=== PATIENT | female | born 1960 | race Caucasian/White ===

== ENCOUNTER 2017-01-27 19:27 | Emergency (ER) | payer MEDICAID ==
[~2017-01-27] VITALS: Ht 154.9 cm; Wt 79.0 kg
[~2017-01-27 19:27] MED LIST: ASPI-676 PO; ATEN50TA PO; FLUO40CA10 PO; GLIP5TAB13 PO; HYDR25TA6 PO; METF500T4 PO
[2017-01-27 19:36] VITALS: Ht 154.9 cm; Wt 79.0 kg
[2017-01-27 20:16] LABS: URINE BLOOD (Dip) POC Negative (NEGATIVE)
[2017-01-27] MEDS ORDERED: ONDANSETRON 4 MG INJ IV STA (20:17)
[2017-01-27] MEDS ORDERED: morphine 4 MG/ML VIAL IV STA (20:17)
[2017-01-27] MEDS ORDERED: KETOROLAC 30 MG INJ IV STA (20:17)
[2017-01-27] MEDS ORDERED: SOD CHLORIDE 0.9% 1,000 ML IV STA (20:17)
[2017-01-27 20:33] VITALS: TEMP 98.2
[2017-01-27 20:56] LABS: ADD SCAN DIFF NO
[2017-01-27 21:07] LABS: BASOPHILS % 0.1 % (0.0-2.0); EOSINOPHILS % 0.4 % (0.0-7.0); HEMATOCRIT 38.4 % (37.0-47.0); HEMOGLOBIN 13.9 g/dl (12.0-16.0); LYMPHOCYTES # 1.7 10^3/ul (0.8-2.9); LYMPHOCYTES % 18.1 % (15.0-51.0); MEAN CORPUSCULAR HEMOGLOBIN 32.9 pg (29.0-33.0); MEAN CORPUSCULAR HGB CONC 36.2 g/dl (32.0-37.0); MEAN CORPUSCULAR VOLUME 90.8 fl (82.0-101.0); MEAN PLATELET VOLUME 9.9 fl (7.4-10.4); MONOCYTE # 0.7 10^3/ul (0.3-0.9); MONOCYTES % 7.3 % (0.0-11.0); NEUTROPHIL # 6.9 10^3/ul (1.6-7.5); NEUTROPHILS % 73.9 % (39.0-77.0); PLATELET COUNT 156 10^3/UL (140-415); RED BLOOD COUNT 4.23 10^6/ul (4.20-5.40); RED CELL DISTRIBUTION WIDTH 12.1 % (11.5-14.5); WHITE BLOOD COUNT 9.3 10^3/ul (4.8-10.8)
[2017-01-27 21:13] LABS: ADD UMIC YES; UR ASCORBIC ACID 40 mg/dL (NEGATIVE); UR BACTERIA FEW /HPF (NONE SEEN); UR BILIRUBIN (Dip) NEGATIVE (NEGATIVE); UR BLOOD (Dip) NEGATIVE (NEGATIVE); UR CLARITY SLIGHTLY CLOUDY (CLEAR); UR COLOR AMBER (YELLOW); UR GLUCOSE (Dip) NEGATIVE (NEGATIVE); UR KETONES (Dip) TRACE mg/dL (NEGATIVE); UR LEUKOCYTE ESTERASE (Dip) NEGATIVE Leu/ul (NEGATIVE); UR MUCUS MODERATE /HPF (NONE SEEN); UR NITRITE (Dip) NEGATIVE (NEGATIVE); UR RBC 0 /HPF (0-5); UR SPECIFIC GRAVITY (Dip) 1.024 (1.003-1.030); UR SQUAMOUS EPITHELIAL CELL FEW /HPF (FEW); UR TOTAL PROTEIN (Dip) 1+ mg/dl (NEGATIVE); UR UROBILINOGEN (Dip) 1+ mg/dL (NEGATIVE)
[2017-01-27] MEDS ORDERED: HYDROmorphONE 1 MG/ML SYG IV STA (21:14)
--- NOTE | 2017-01-27 21:42 | RADRPT ---
PROCEDURE: CT Abdomen and Pelvis without contrast. CLINICAL INDICATION: Abdominal pain TECHNIQUE: CT scan of the abdomen and pelvis without contrast was performed on a multidetector hig h-resolution CT scanner. The patient was scanned without intravenous contrast. Coronal and sagittal reformatted images were obtained from the axial source images. Images were reviewed on a high-resol [employer] PACS workstation. The total exam CTDI equals 15.49 mGy and the total exam DLP equals 852.60 mG y-cm. One or more of the following dose reduction techniques were used: Automated exposure control. Adjustment of the mA and/or kV according to patient size. Use of iterative reconstruction technique. COMPARISON: None FINDINGS: CT abdomen: The lung bases are clear. The heart size is normal, without pericardial thickening or effusion. Th ere is hepatomegaly with fatty infiltration. The spleen is normal in size and homogeneous in densit y. The stomach is partially collapsed, but is grossly unremarkable. The pancreas as visualized is normal. The gallbladder is unremarkable. There is no evidence for biliary dilatation. The adrenal glands are symmetric and normal. The kidneys are symmetrically unremarkable as well. No renal calc ulus or obstructive uropathy or mass lesion is seen. The aorta is of normal caliber. Aortic vascular calcifications are present. There is no retroperit gee lymphadenopathy. The carlos hepatis region is clear. The bowel and mesentery, as visualized, are equally unremarkable. CT pelvis: The small bowel loops situated within the pelvis are unremarkable. There is a normal appendix. The p elvic organs are normal. The pelvic sidewalls and inguinal regions are clear. The sigmoid colon an d rectum are unremarkable. No mass, lymphadenopathy, or free fluid is seen. No acute inflammation is seen. No osteolytic or osteoblastic lesion is detected. IMPRESSION: 1. No mass, lymphadenopathy, or focal acute inflammatory process is identified. 2. Hepatomegaly with fatty infiltration. 3. Normal appendix. 4. Scattered aortic vascular calcifications. RPTAT: HHO .Christine Mcdonald MD, Date Time Electronically viewed and signed by .Christine Mcdonald MD, on 01/27/2017 21:42 .O/
[2017-01-27 22:19] LABS: ALBUMIN/GLOBULIN RATIO 1.33; BILIRUBIN,INDIRECT 0.7 mg/dl (0-1.1); BILIRUBIN,TOTAL 0.7 mg/dl (0.2-1.3); CALCIUM 8.7 mg/dl (8.4-10.2); CREATININE 0.53 mg/dl (0.44-1.00); POTASSIUM 3.4 mmol/L (3.5-5.1)
[2017-01-27] MEDS ORDERED: HYDR-902 PO (22:46)
[2017-01-27] MEDS ORDERED: ONDA4TAB14 PO (22:46)
[2017-01-27 22:51] VITALS: BP 131/82; PULSE 82; RESP 16
--- NOTE | 2017-01-27 22:56 | ERD ---
ER Documentation Chief Complaint Date/Time DATE: 01/27/17 TIME: 22:53 Chief Complaint rt flank pain today, +vomiting HPI Patient is a 56-year-old female with diabetes and hypertension who presents with right-sided flank pain. Patient has had pain for the past 3 days. The pain was worse today. It is constant. She said that she had mild pain with urination. She denies fevers. She tried Tylenol with no help. Upon review of old medical records the patient had one previous visit to the ER in 2011. ROS All systems reviewed and are negative except as per history of present illness. Medications Home Meds Active Scripts Ondansetron (Ondansetron Odt) 4 Mg Tab.rapdis, 4 MG PO Q6H Y for NAUSEA AND/OR VOMITING, #30 TAB Prov:MUNIR HUFFMAN MD 01/27/17 Hydrocodone/Acetaminophen ([place] 10-325 Tablet) 1 Each Tablet, 1 TAB PO Q6H Y for PAIN, #7 TAB Prov:MUNIR HUFFMAN MD 01/27/17 Reported Medications Atenolol* (Atenolol*) 50 Mg Tablet, 50 MG PO DAILY 01/09/12 Fluoxetine Hcl* (Prozac*) 40 Mg Capsule, 40 MG PO DAILY 01/09/12 Metformin* (Glucophage*) 500 Mg Tab, 500 MG PO BID 01/09/12 Hydrochlorothiazide (Hydrochlorothiazide) 25 Mg Tablet, 25 MG PO DAILY 01/09/12 Glipizide* (Glipizide*) 5 Mg Tablet, 5 MG PO BID 01/09/12 Aspirin (Elvin Child) 81 Mg Chew, 81 MG PO DAILY 01/09/12 Allergies Allergies: Coded Allergies: No Known Allergy (Unverified , 01/27/17) PMhx/Soc History of Surgery: No Anesthesia Reaction: No Hx Neurological Disorder: No Hx Respiratory Disorders: No Hx Cardiac Disorders: No Hx Psychiatric Problems: No Hx Miscellaneous Medical Probl: Yes (DM) Hx Alcohol Use: No Hx Substance Use: No Hx Tobacco Use: No Smoking Status: Never smoker FmHx Family History: diabetes Physical Exam Vitals Vital Signs Date Time Temp Pulse Resp B/P Pulse Ox O2 Delivery O2 Flow Rate FiO2 01/27/17 22:51 82 16 131/82 100 Room Air 01/27/17 21:51 86 18 136/86 100 Room Air 01/27/17 20:33 98.2 83 20 143/82 98 Room Air 01/27/17 19:36 98.0 106 18 174/113 98 Physical Exam Const: Moderate distress secondary to pain Head: Atraumatic Eyes: Normal Conjunctiva ENT: Normal External Ears, Nose and Mouth. Neck: Full range of motion..~ No meningismus. Resp: Clear to auscultation bilaterally Cardio: Regular rate and rhythm, no murmurs Abd: Right-sided flank pain without right lower quadrant pain Skin: No petechiae or rashes Back: No midline or flank tenderness Ext: No cyanosis, or edema Neur: Awake and alert Psych: Normal Mood and Affect Result Diagram: 01/27/17202401/27/172131 Results 24 hrs Laboratory Tests Test 01/27/17 20:19 01/27/17 20:25 01/27/17 21:32 Bedside Urine pH (LAB) 7.0 Bedside Urine Protein (LAB) 2+ Bedside Urine Glucose (UA) Negative Bedside Urine Ketones (LAB) 1+ Bedside Urine Blood Negative Bedside Urine Nitrite (LAB) Negative Bedside Urine Leukocyte Esterase (L Negative White Blood Count 9.310^3/ul Red Blood Count 4.2310^6/ul Hemoglobin 13.9g/dl Hematocrit 38.4% Mean Corpuscular Volume 90.8fl Mean Corpuscular Hemoglobin 32.9pg Mean Corpuscular Hemoglobin Concent 36.2g/dl Red Cell Distribution Width 12.1% Platelet Count 95828^3/UL Mean Platelet Volume 9.9fl Neutrophils % 73.9% Lymphocytes % 18.1% Monocytes % 7.3% Eosinophils % 0.4% Basophils % 0.1% Nucleated Red Blood Cells % 0.0/100WBC Neutrophils # 6.910^3/ul Lymphocytes # 1.710^3/ul Monocytes # 0.710^3/ul Eosinophils # 0.010^3/ul Basophils # 0.010^3/ul Nucleated Red Blood Cells # 0.010^3/ul Urine Color MESFIN Urine Clarity SLIGHTLY CLOUDY Urine pH 7.0 Urine Specific [place] 1.024 Urine Ketones TRACEmg/dL Urine Nitrite NEGATIVEmg/dL Urine Bilirubin NEGATIVEmg/dL Urine Urobilinogen 1+mg/dL Urine Leukocyte Esterase NEGATIVELeu/ul Urine Microscopic RBC 0/HPF Urine Microscopic WBC 2/HPF Urine Squamous Epithelial Cells FEW/HPF Urine Bacteria FEW/HPF Urine Mucus MODERATE/HPF Urine Hemoglobin NEGATIVEmg/dL Urine Glucose NEGATIVEmg/dL Urine Total Protein 1+mg/dl Sodium Level 127mmol/L Potassium Level 3.4mmol/L Chloride Level 83mmol/L Carbon Dioxide Level 30mmol/L Anion Gap 17 Blood Urea Nitrogen 5mg/dl Creatinine 0.53mg/dl Glucose Level 95mg/dl Calcium Level 8.7mg/dl Total Bilirubin 0.7mg/dl Direct Bilirubin 0.00mg/dl Indirect Bilirubin 0.7mg/dl Aspartate Amino Transf (AST/SGOT) 72IU/L Alanine Aminotransferase (ALT/SGPT) 58IU/L Alkaline Phosphatase 74IU/L Total Protein 7.0g/dl Albumin 4.0g/dl Globulin 3.00g/dl Albumin/Globulin Ratio 1.33 Lipase 161U/L Current Medications Medications (Trade) Dose Ordered Sig/Bonnie Route PRN Reason Start Time Stop Time Status Last Admin Dose Admin Sodium Chloride (NS) 1,000 ml @ 1,000 mls/hr Q1H STAT IV 01/27/17 20:17 01/27/17 21:16 DC 01/27/17 20:29 Morphine Sulfate (morphine) 4 mg ONCE STAT IV 01/27/17 20:17 01/27/17 20:18 DC 01/27/17 20:29 Ondansetron HCl (Zofran Inj) 4 mg ONCE STAT IV 01/27/17 20:17 01/27/17 20:18 DC 01/27/17 20:30 Ketorolac Tromethamine (Toradol) 30 mg ONCE STAT IV 01/27/17 20:17 01/27/17 20:18 DC 01/27/17 20:30 Hydromorphone HCl (Dilaudid) 1 mg ONCE STAT IV 01/27/17 21:14 01/27/17 21:16 DC 01/27/17 21:20 Procedures/MDM CT scan shows no acute process per radiology. Patient is a 56-year-old female with hypertension diabetes who presents with right-sided flank pain. Urinalysis shows no signs of obvious infection. CT scan shows no obvious signs of kidney stone, bowel obstruction, or appendicitis. At this point I doubt pyelonephritis, appendicitis, bowel obstruction, or other serious etiology. I believe outpatient management is appropriate. The patient feels better after pain medication and fluids. She will be discharged home and can follow-up with a primary doctor within 24 hours for reevaluation. She can return sooner for any worsening symptoms per Departure Diagnosis: Primary Impression: Flank pain Condition: Fair Patient Instructions: Flank Pain, Uncertain Cause Referrals: [facility] YOU HAVE RECEIVED A MEDICAL SCREENING EXAM AND THE RESULTS INDICATE THAT YOU DO NOT HAVE A CONDITION THAT REQUIRES URGENT TREATMENT IN THE EMERGENCY DEPARTMENT. FURTHER EVALUATION AND TREATMENT OF YOUR CONDITION CAN WAIT UNTIL YOU ARE SEEN IN YOUR DOCTORS OFFICE WITHIN THE NEXT 1-2 DAYS. IT IS YOUR RESPONSIBILITY TO MAKE AN APPOINTMENT FOR [facility]. IF YOU HAVE A PRIMARY DOCTOR --you should call your primary doctor and schedule an appointment IF YOU DO NOT HAVE A PRIMARY DOCTOR YOU CAN CALL OUR PHYSICIAN REFERRAL HOTLINE AT IF YOU CAN NOT AFFORD TO SEE A PHYSICIAN YOU CAN CHOSE FROM THE FOLLOWING [facility] [address] [facility] [facility] [address] [facility] [facility] [address] [facility] [address] [facility] [facility] [address] [facility]. [facility]. [address] Additional Instructions: FOLLOW UP WITH YOUR PRIMARY CARE PHYSICIAN TOMORROW.Return to this facility if you are not improving as expected. MUNIR HUFFMAN MD Jan 27, 2017 22:56
== END 2017-01-27 22:56 | disposition home or self-care (01) ==
LOC: E/R 19:27
DX: R10.9 Unspecified abdominal pain (principal); I10 Essential (primary) hypertension; E11.9 Type 2 diabetes mellitus without complications; Z79.82 Long term (current) use of aspirin; Z79.84 Long term (current) use of oral hypoglycemic drugs
CPT/HCPCS: 36415; 74176; 80053; 81001; 83690; 85025; 96374; 96375; J1170; J1885; J2270; J2405; J7030; Z7502; 81003

== ENCOUNTER 2017-01-30 12:12 | Emergency (ER) | payer MEDICAID ==
[~2017-01-30] VITALS: Ht 154.9 cm; Wt 77.5 kg
[~2017-01-30 12:12] MED LIST changes: -FLUO40CA10 PO; +HYDR-902 PO; +ONDA4TAB14 PO
[2017-01-30 12:14] VITALS: Ht 154.9 cm; Wt 77.5 kg
[2017-01-30] MEDS ORDERED: ONDANSETRON (ODT) 4 MG TAB ODT STA (14:14)
--- NOTE | 2017-01-30 14:20 | ERD ---
ER Documentation Chief Complaint Date/Time DATE: 01/30/17 TIME: 14:18 Chief Complaint Pt with GIFFORD andf blurry vision since yesterday HPI Patient is a 56-year-old female with past medical history of hypertension and diabetes here with her friend who presents to the ED with headache since yesterday afternoon. She states the pain came on suddenly and has been gradually getting worse. She describes it as a pulsating sensation on her left temporal side. She also complains of nausea with no vomiting. Denies fevers. Denies neck pain or neck stiffness. She states that this is unlike any headache she has experienced in the past. She states that she took [place] on the seventh for her flank pain and states that she stopped taking the medication on the 01/28/17. She states that she was concerned about the side effects of [place]. She also states that she has been taking Tylenol for the pain which has helped very minimally. She denies diarrhea or vomiting. Denies chest pain or cough or shortness of breath. Denies sick contacts. No other complaints. ROS All systems reviewed and are negative except as per history of present illness. Medications Home Meds Active Scripts Acetamin/Butalbital/Caffeine* (Fioricet*) [id number] Tab, 1 TAB PO Q6H Y for PAIN, #30 TAB Prov:JOSE RAUL INMAN PA-C 01/30/17 Ondansetron (Ondansetron Odt) 4 Mg Tab.rapdis, 4 MG PO Q6H Y for NAUSEA AND/OR VOMITING, #30 TAB Prov:MUNIR HUFFMAN MD 01/27/17 Hydrocodone/Acetaminophen ([place] 10-325 Tablet) 1 Each Tablet, 1 TAB PO Q6H Y for PAIN, #7 TAB Prov:MUNIR HUFFMAN MD 01/27/17 Reported Medications Atenolol* (Atenolol*) 50 Mg Tablet, 50 MG PO DAILY 01/09/12 Metformin* (Glucophage*) 500 Mg Tab, 500 MG PO BID 01/09/12 Hydrochlorothiazide (Hydrochlorothiazide) 25 Mg Tablet, 25 MG PO DAILY 01/09/12 Glipizide* (Glipizide*) 5 Mg Tablet, 5 MG PO BID 01/09/12 Aspirin (Elvin Child) 81 Mg Chew, 81 MG PO DAILY 01/09/12 Discontinued Reported Medications Fluoxetine Hcl* (Prozac*) 40 Mg Capsule, 40 MG PO DAILY 01/09/12 Allergies Allergies: Coded Allergies: No Known Allergy (Unverified , 01/30/17) PMhx/Soc History of Surgery: No Anesthesia Reaction: No Hx Neurological Disorder: No Hx Respiratory Disorders: No Hx Cardiac Disorders: Yes (Hypertension) Hx Psychiatric Problems: No Hx Miscellaneous Medical Probl: Yes (DM) Hx Alcohol Use: No Hx Substance Use: No Hx Tobacco Use: No Smoking Status: Never smoker FmHx Family History: No coronary disease, No diabetes, No other Physical Exam Vitals Vital Signs Date Time Temp Pulse Resp B/P Pulse Ox O2 Delivery O2 Flow Rate FiO2 01/30/17 12:14 98.6 92 20 183/86 96 Physical Exam GENERAL: Well-developed, well-nourished female. Appears in no acute distress. HEAD: Normocephalic, atraumatic. no pulsatile mass. EYES: Pupils are equally reactive bilaterally. EOMs grossly intact. No conjunctival erythema. ENT: Moist mucous membranes. No uvula deviation. No kissing tonsils. No exudates. NECK: Supple. No lymphadenopathy or thyromegaly. No meningismus. negative kernig. negative brudinski. LUNG: Clear to auscultation bilaterally. No rhonchi, wheezing, rales or coarse breath sounds. HEART: Regular rate and rhythm. No murmurs, rubs or gallops. ABDOMEN: No scars, ecchymosis or rashes noted. Soft, nontender, and nondistended. Positive bowel sounds in all four quadrants. No rebound tenderness , no guarding. (-) McBurneys point tenderness. No CVA tenderness. BACK: No midline tenderness. Extremities: Equal pulses bilaterally. No peripheral clubbing, cyanosis or edema. No unilateral leg swelling. NEUROLOGIC: Alert and oriented. Moving all four extremities. 5/5 strength in all extremities. Normal speech. Steady gait. Cranial nerves II through XII intact. No ataxia. Negative Romberg test. SKIN: Normal color. Warm and dry. No rashes or lesions. Capillary refill < 2 seconds Results 24 hrs Current Medications Medications (Trade) Dose Ordered Sig/Bonnie Route PRN Reason Start Time Stop Time Status Last Admin Dose Admin Ondansetron HCl (Zofran Odt) 4 mg ONCE STAT ODT 7/10/17 14:14 01/30/17 14:16 DC 01/30/17 14:38 Acetaminophen (Tylenol Tab) 650 mg ONCE ONCE PO 01/30/17 14:30 01/30/17 14:31 DC 01/30/17 14:40 Procedures/MDM ER COURSE: I kept the patient and/or family informed of laboratory and diagnostic imaging results throughout the emergency room course. EKG, MONITORS, & DIAGNOSTIC IMAGING: [place] [id number] Radiology Main Line: [phone] DIAGNOSTIC IMAGING REPORT Patient: KARLOS HOUSTON : 1960 Age: 56 Sex: F MR #: [id number] DOS: 01/30/17 1414 Ordering MD: JOSE RAUL INMAN PA-C Location: [facility] Room/Bed: PROCEDURE: CT Brain without contrast. CLINICAL INDICATION: headache x 2 days TECHNIQUE: CT scan of the brain was performed on a multidetector high- resolution CT scan. Axial imaging was obtained of the brain without contrast administration. Coronal and sagittal reformatted images were obtained from the axial source images. Standard CT scan of the head without contrast protocols were performed. The total exam CTDI equals 44.63 mGy and the total exam DLP equals 720.23 mGy- cm. One or more of the following dose reduction techniques were used: - Automated exposure control. - Adjustment of the mA and/or kV according to patient size. Use of iterative reconstruction technique. COMPARISON: None. FINDINGS: The ventricular system is normal in size without midline shift. There is mild prominence of the frontal extra-axial CSF spaces consistent with symmetrical frontal cerebral volume loss. Negative for intracranial masses or hemorrhages. Punctate 2 mm calcification involving the posterior left frontal lobe consistent with previous inflammatory disease such as cysticercosis. Seals- white matter junction is unremarkable. There is hard atherosclerotic plaque involving the cavernous carotid arteries. The bones and calvarium are intact. Paranasal sinuses visualized are unremarkable. The mastoids are unremarkable. IMPRESSION: 1. Punctate 2 mm calcification the posterior left frontal lobe consistent with previous inflammatory disease such as cysticercosis. 2. Negative for intracranial masses hemorrhages or midline shift. 3. Symmetrical mild bilateral pleural cerebral volume loss. RPTAT:AAJJ Physician Nabila Date Time Electronically viewed and signed by Jo-Ann Tang Physician on 01/30/2017 15:14 BM/ CC: JOSE RAUL INMAN PA-C MEDICATIONS: She was given Tylenol. Tolerated well with no adverse reaction. Improvement in symptoms. MEDICAL DECISION MAKING: This is a 56-year-old female who presents with headache 2 days. Vital signs were reviewed. Patient is afebrile. Patient is not hypoxic. Patient is not toxic or ill-appearing. Risk versus benefits of the CT scan were discussed with patient. Low suspicion for intracranial hemorrhage, meningitis, intracranial mass, concussion, temporal arteritis, stroke, elevated intracranial pressure, seizure. Patient does not have a pulsatile mass. Explained to patient her imaging report. Advised patient to follow-up with her primary care and neurologist. Patient had improvement in symptoms here in the ED was ready to go home. DISCHARGE: At this time, patient is stable for discharge and outpatient management with no new complaints during the ER course. Patient was sent home with Fioricet and a copy of imaging report and names of clinics. Patient will be discharged home with instructions to recheck for new or worsening symptoms such as fever, nausea , weakness, LOC and to follow up with primary care in the next 1-2 days. Patient was advised to return to the ER for any new or worsening symptoms. Plan was discussed and patient and/or family understands and agrees. Home instructions were given. Departure Diagnosis: Primary Impression: Headache Headache type: unspecified Headache chronicity pattern: acute headache Intractability: not intractable Qualified Code: R51 - Acute nonintractable headache, unspecified headache type Condition: Stable JOSE RAUL INMAN PA-C Jan 30, 2017 14:20
[2017-01-30] MEDS ORDERED: ACETAMINOPHEN 325 MG TAB PO ONE (14:30)
--- NOTE | 2017-01-30 15:14 | RADRPT ---
PROCEDURE: CT Brain without contrast. CLINICAL INDICATION: headache x 2 days TECHNIQUE: CT scan of the brain was performed on a multidetector high-resolution CT scan. Axial im aging was obtained of the brain without contrast administration. Coronal and sagittal reformatted i mages were obtained from the axial source images. Standard CT scan of the head without contrast prot ocols were performed. The total exam CTDI equals 44.63 mGy and the total exam DLP equals 720.23 mGy-cm. One or more of the following dose reduction techniques were used: - Automated exposure control. - Adjustment of the mA and/or kV according to patient size. Use of iterative reconstruction technique. COMPARISON: None. FINDINGS: The ventricular system is normal in size without midline shift. There is mild prominence of the fro ntal extra-axial CSF spaces consistent with symmetrical frontal cerebral volume loss. Negative for intracranial masses or hemorrhages. Punctate 2 mm calcification involving the posterior left fronta l lobe consistent with previous inflammatory disease such as cysticercosis. Seals-white matter junct ion is unremarkable. There is hard atherosclerotic plaque involving the cavernous carotid arteries. The bones and calvarium are intact. Paranasal sinuses visualized are unremarkable. The mastoids a re unremarkable. IMPRESSION: 1. Punctate 2 mm calcification the posterior left frontal lobe consistent with previous inflammator y disease such as cysticercosis. 2. Negative for intracranial masses hemorrhages or midline shift. 3. Symmetrical mild bilateral pleural cerebral volume loss. RPTAT:AAJJ Physician Nabila Date Time Electronically viewed and signed by Physician Nabila on 01/30/2017 15:14 BM/
[2017-01-30] MEDS ORDERED: FIORICET PO (16:02)
== END 2017-01-30 16:17 | disposition home or self-care (01) ==
LOC: FTE 12:12
DX: R51 Headache (principal); E11.9 Type 2 diabetes mellitus without complications; I10 Essential (primary) hypertension; Z79.82 Long term (current) use of aspirin; Z79.84 Long term (current) use of oral hypoglycemic drugs
CPT/HCPCS: 70450; Z7502; Z7610

== ENCOUNTER 2017-03-10 02:22 | Emergency (ER) | payer MEDICAID ==
[~2017-03-10] VITALS: Ht 154.9 cm; Wt 75.9 kg
[~2017-03-10 02:22] MED LIST changes: +FIORICET PO
[2017-03-10 02:26] VITALS: Ht 154.9 cm; Wt 75.9 kg
--- NOTE | 2017-03-10 03:16 | RADRPT ---
PROCEDURE: Chest. CLINICAL INDICATION: Chest pain. TECHNIQUE: Single frontal view of the chest was obtained. COMPARISON: None. FINDINGS: The cardiac silhouette is within normal limits. The aortic arch is unremarkable. There is no focal consolidation, vascular congestion or pleural effusion. There is no pneumothorax. IMPRESSION: No evidence for active cardiopulmonary disease. .Sarbjit Aly MD, MD Date Time Electronically viewed and signed by .Sarbjit Aly MD, MD on 03/10/2017 03:15 .T/
[2017-03-10 03:18] LABS: BASOPHILS % 0.1 % (0.0-2.0); EOSINOPHILS # 0.1 10^3/ul (0.0-0.5); EOSINOPHILS % 1.2 % (0.0-7.0); HEMATOCRIT 37.6 % (37.0-47.0); HEMOGLOBIN 13.4 g/dl (12.0-16.0); LYMPHOCYTES # 2.7 10^3/ul (0.8-2.9); LYMPHOCYTES % 34.4 % (15.0-51.0); MEAN CORPUSCULAR HEMOGLOBIN 31.9 pg (29.0-33.0); MEAN CORPUSCULAR HGB CONC 35.6 g/dl (32.0-37.0); MEAN CORPUSCULAR VOLUME 89.5 fl (82.0-101.0); MEAN PLATELET VOLUME 10.2 fl (7.4-10.4); MONOCYTE # 0.6 10^3/ul (0.3-0.9); MONOCYTES % 7.4 % (0.0-11.0); NEUTROPHILS % 56.5 % (39.0-77.0); PLATELET COUNT 148 10^3/UL (140-415); RED CELL DISTRIBUTION WIDTH 12.4 % (11.5-14.5); WHITE BLOOD COUNT 7.8 10^3/ul (4.8-10.8)
[2017-03-10] MEDS ORDERED: CALC600T11 PO (03:32)
[2017-03-10] MEDS ORDERED: OMEG1CAP2 PO (03:32)
[2017-03-10] MEDS ORDERED: MULTI PO (03:32)
[2017-03-10 03:56] LABS: ANION GAP 19 (8-16); BLOOD UREA NITROGEN 4 mg/dl (7-20); CALCIUM 9.4 mg/dl (8.4-10.2); CARBON DIOXIDE 24 mmol/L (21-31); CHLORIDE 90 mmol/L (97-110); CREATININE 0.58 mg/dl (0.44-1.00); GLUCOSE 126 mg/dl (70-220); SODIUM 130 mmol/L (135-144)
[2017-03-10 03:57] LABS: INR 1.11; PROTIME 14.3 Sec (12.2-14.2); PT RATIO 1.1
[2017-03-10 03:58] LABS: PARTIAL THROMBOPLASTIN TIME 29.5 Sec (25.0-35.0)
[2017-03-10] MEDS ORDERED: POTASSIUM CHLORIDE (SR) 20 MEQ TAB PO STA (04:12)
[2017-03-10 04:15] LABS: TROPONIN-I < 0.012 ng/ml (0.00-0.12)
[2017-03-10 04:29] LABS: CREATINE KINASE 69 IU/L (23-200)
[2017-03-10] MEDS ORDERED: IBUPROFEN 600 MG TAB PO ONE (04:30)
[2017-03-10] MEDS ORDERED: ZOLP5TAB PO (04:35)
[2017-03-10] MEDS ORDERED: PROM5SYR2 PO (04:35)
[2017-03-10] MEDS ORDERED: AZIT250T94 PO (04:35)
[2017-03-10 04:39] LABS: CK-MB 0.61 ng/ml (0.0-2.4)
[2017-03-10 04:51] LABS: TROPONIN-I < 0.012 ng/ml (0.00-0.12)
[2017-03-10 05:14] VITALS: BP 128/89; PULSE 87; RESP 18; TEMP 98.7
--- NOTE | 2017-03-10 06:15 | ERA ---
ER Documentation Chief Complaint Date/Time DATE: 03/10/17 Chief Complaint YUE RA39,chest discomfort HPI Patient is a 56-year-old female, presenting with acute chest discomfort associated with cough, congestion, insomnia for the last 5 days. The cough is nonproductive. She does have any fever, chills, chest pain with exertion or vomiting or diaphoresis. He denies abdominal pain, vomiting, dysuria, diarrhea. She does not smoke or drink Past medical history: Hypertension, diabetes mellitus Past surgical history: None ROS All systems reviewed and are negative except as per history of present illness. Medications Home Meds Active Scripts Zolpidem Tartrate* (Ambien*) 5 Mg Tablet, 5 MG PO HS Y for INSOMNIA, #5 TAB Prov:ROMY OCAMPO MD 03/10/17 Promethazine HCl/Codeine (Prometh-Codein 6.25-10 mg/5 ml) 5 Ml Syrup, 5 ML PO Q6 , #120 Prov:ROMY OCAMPO MD 03/10/17 Azithromycin* (Zithromax*) 250 Mg Tablet, 250 MG PO .AdisPACK DIRECTED, #6 TAB TAKE 500 MG (2 TABS) THE FIRST DAY THEN 250 MG (1 TAB) DAYS 2-5 Prov:ROMY OCAMPO MD 03/10/17 Acetamin/Butalbital/Caffeine* (Fioricet*) [id number] Tab, 1 TAB PO Q6H Y for PAIN, #30 TAB Prov:JOSE RAUL INMAN PA-C 01/30/17 Reported Medications Calcium Carbonate* (Calcium Carbonate*) 600 MG Ca Tab, 600 MG PO, TAB 03/10/17 Multivitamins* (Theragran*) 1 Tab Tab, 1 TAB PO DAILY, TAB 03/10/17 [place]-3 Acid Ethyl Esters (Lovaza) 1 Gm Capsule, 2 GM PO BID, CAP 03/10/17 Atenolol* (Atenolol*) 50 Mg Tablet, 50 MG PO DAILY 01/09/12 Metformin* (Glucophage*) 500 Mg Tab, 500 MG PO BID 01/09/12 Hydrochlorothiazide (Hydrochlorothiazide) 25 Mg Tablet, 25 MG PO DAILY 01/09/12 Glipizide* (Glipizide*) 5 Mg Tablet, 5 MG PO BID 01/09/12 Aspirin (Elvin Child) 81 Mg Chew, 81 MG PO DAILY 01/09/12 Discontinued Scripts Ondansetron (Ondansetron Odt) 4 Mg Tab.rapdis, 4 MG PO Q6H Y for NAUSEA AND/OR VOMITING, #30 TAB Prov:MUNIR HUFFMAN MD 01/27/17 Hydrocodone/Acetaminophen ([place] 10-325 Tablet) 1 Each Tablet, 1 TAB PO Q6H Y for PAIN, #7 TAB Prov:MUNIR HUFFMAN MD 01/27/17 Allergies Allergies: Coded Allergies: No Known Allergy (Unverified , 03/10/17) PMhx/Soc History of Surgery: No Anesthesia Reaction: No Hx Neurological Disorder: No Hx Respiratory Disorders: No Hx Cardiac Disorders: Yes (Hypertension) Hx Psychiatric Problems: No Hx Miscellaneous Medical Probl: Yes (DM) Hx Alcohol Use: No Hx Substance Use: No Hx Tobacco Use: No Smoking Status: Never smoker Physical Exam Vitals Vital Signs Date Time Temp Pulse Resp B/P Pulse Ox O2 Delivery O2 Flow Rate FiO2 03/10/17 05:14 98.7 87 18 128/89 97 Room Air 03/10/17 03:24 90 18 133/93 97 Room Air 03/10/17 02:36 102 18 151/96 97 Room Air 03/10/17 02:26 99.2 123 18 150/82 97 Physical Exam Const: No acute distress. Head: Atraumatic. Eyes: Normal Conjunctiva. ENT: Normal External Ears, Nose and Mouth. Neck: Full range of motion. No meningismus. Resp: Clear to auscultation bilaterally. Cardio: Regular rate and rhythm. Abd: Soft, non distended, normal bowel sounds, non tender. Skin: No petechiae or rashes. Back: No midline or flank tenderness. Ext: No cyanosis, or edema. Neur: Awake and alert. No focal deficit Psych: Normal Mood and Affect. Result Diagram: 03/10/179 03/10/17 0249 Results 24 hrs Laboratory Tests Test 03/10/17 02:49 White Blood Count 7.810^3/ul Red Blood Count 4.2010^6/ul Hemoglobin 13.4g/dl Hematocrit 37.6% Mean Corpuscular Volume 89.5fl Mean Corpuscular Hemoglobin 31.9pg Mean Corpuscular Hemoglobin Concent 35.6g/dl Red Cell Distribution Width 12.4% Platelet Count 24435^3/UL Mean Platelet Volume 10.2fl Neutrophils % 56.5% Lymphocytes % 34.4% Monocytes % 7.4% Eosinophils % 1.2% Basophils % 0.1% Nucleated Red Blood Cells % 0.0/100WBC Neutrophils # (Manual) 410^3/ul Lymphocytes # 2.710^3/ul Monocytes # 0.610^3/ul Eosinophils # 0.110^3/ul Basophils # 0.010^3/ul Nucleated Red Blood Cells # 0.010^3/ul Prothrombin Time 14.3Sec Prothrombin Time Ratio 1.1 INR International Normalized Ratio 1.11 Activated Partial Thromboplast Time 29.5Sec Sodium Level 130mmol/L Potassium Level 3.0mmol/L Chloride Level 90mmol/L Carbon Dioxide Level 24mmol/L Anion Gap 19 Blood Urea Nitrogen 4mg/dl Creatinine 0.58mg/dl Glucose Level 126mg/dl Calcium Level 9.4mg/dl Creatine Kinase 69IU/L Creatine Kinase Index 0.9 Creatinine Kinase MB (Mass) 0.61ng/ml Troponin I < 0.012ng/ml Current Medications Medications (Trade) Dose Ordered Sig/Bonnie Route PRN Reason Start Time Stop Time Status Last Admin Dose Admin Ibuprofen (Motrin) 600 mg ONCE ONCE PO 03/10/17 04:30 03/10/17 04:31 DC 03/10/17 04:13 Potassium Chloride (Klor-Con 20) 60 meq ONCE STAT PO 03/10/17 04:12 03/10/17 04:14 DC 03/10/17 04:36 Procedures/[place] [address] Radiology Main Line: [phone] DIAGNOSTIC IMAGING REPORT Patient: KARLOS HOUSTON : 1960 Age: 56 Sex: F MR #: [id number] DOS: 03/10/17 0229 Ordering MD: ROMY OCAMPO MD Location: E/R Room/Bed: PROCEDURE: Chest. CLINICAL INDICATION: Chest pain. TECHNIQUE: Single frontal view of the chest was obtained. COMPARISON: None. FINDINGS: The cardiac silhouette is within normal limits. The aortic arch is unremarkable. There is no focal consolidation, vascular congestion or pleural effusion. There is no pneumothorax. IMPRESSION: No evidence for active cardiopulmonary disease. .Sarbjit Aly MD, Date Time Electronically viewed and signed by .Sarbjit Aly MD, on 03/10/2017 03:15 .T/ CC: ROMY OCAMPO MD EKG: Read by emergency physician Rate/Rhythm: Normal Sinus Rhythm 92 beats/min QRS, ST, T-waves: No ST elevation, no T inversion Impression: Normal EKG MEDICAL MAKING DECISION: The patient is a 56-year-old female, presenting with acute bronchitis, acute hypokalemia, acute insomnia. She was treated with Motrin 600 mg p.o. for her general body pain, potassium chloride 60 mg p.o. for her acute hypokalemia. I do not suspect ACS and the patient The differential diagnoses considered include but are not limited to acute coronary syndrome, acute myocardial infarction, pericarditis, pulmonary embolism , aortic dissection, pneumonia, pleural effusion, pneumothorax, GERD, chest wall pain. Departure Diagnosis: Primary Impression: Bronchitis Additional Impression: Hypokalemia Condition: Good Patient Instructions: Bronchitis, Antiobiotic Treatment (Adult) Referrals: COUNT INCLUDES THE [facility] YOU HAVE RECEIVED A MEDICAL SCREENING EXAM AND THE RESULTS INDICATE THAT YOU DO NOT HAVE A CONDITION THAT REQUIRES URGENT TREATMENT IN THE EMERGENCY DEPARTMENT. FURTHER EVALUATION AND TREATMENT OF YOUR CONDITION CAN WAIT UNTIL YOU ARE SEEN IN YOUR DOCTORS OFFICE WITHIN THE NEXT 1-2 DAYS. IT IS YOUR RESPONSIBILITY TO MAKE AN APPOINTMENT FOR FOLOW-UP CARE. IF YOU HAVE A PRIMARY DOCTOR --you should call your primary doctor and schedule an appointment IF YOU DO NOT HAVE A PRIMARY DOCTOR YOU CAN CALL OUR PHYSICIAN REFERRAL HOTLINE AT IF YOU CAN NOT AFFORD TO SEE A PHYSICIAN YOU CAN CHOSE FROM THE FOLLOWING COUNT INCLUDES THE [facility] [address] [facility]. [facility] [address] [facility] [address] [facility] [address] [facility]. [facility] [address] [facility]. [facility] [address] [facility]. [facility] YOU HAVE RECEIVED A MEDICAL SCREENING EXAM AND THE RESULTS INDICATE THAT YOU DO NOT HAVE A CONDITION THAT REQUIRES URGENT TREATMENT IN THE EMERGENCY DEPARTMENT. FURTHER EVALUATION AND TREATMENT OF YOUR CONDITION CAN WAIT UNTIL YOU ARE SEEN IN YOUR DOCTORS OFFICE WITHIN THE NEXT 1-2 DAYS. IT IS YOUR RESPONSIBILITY TO MAKE AN APPOINTMENT FOR FOLOW-UP CARE. IF YOU HAVE A PRIMARY DOCTOR --you should call your primary doctor and schedule and appointment IF YOU DO NOT HAVE A PRIMARY DOCTOR YOU CAN CALL OUR PHYSICIAN REFERRAL HOTLINE AT . IF YOU CAN NOT AFFORD TO SEE A PHYSICIAN YOU CAN CHOSE FROM THE FOLLOWING [facility] INSTITUTIONS: [facility] [address] [place] [address] [facility] [address] [place] [address] [facility] [address] [place] [address] Additional Instructions: Call your primary care doctor TOMORROW for an appointment during the next 2-3 days.See the doctor sooner or return here if your condition worsens before your appointment time. He was discharged with Zithromax, Phenergan with codeine, ROMY Carr MD Mar 10, 2017 06:15
== END 2017-03-10 05:16 | disposition home or self-care (01) ==
LOC: E/R 02:22
DX: J20.9 Acute bronchitis, unspecified (principal); E87.6 Hypokalemia; I10 Essential (primary) hypertension; E11.9 Type 2 diabetes mellitus without complications; Z79.82 Long term (current) use of aspirin; Z79.84 Long term (current) use of oral hypoglycemic drugs
CPT/HCPCS: 36415; 71010; 80048; 82550; 82553; 84484; 85025; 85610; 85730; 93005; Z7502; Z7610

== ENCOUNTER 2017-09-08 10:04 | Emergency (ER) | END 2017-09-09 04:54 ==

== ENCOUNTER 2017-09-17 20:55 | Inpatient (IN) | END 2017-09-19 14:20 | disposition home or self-care (01) | DRG 872 ==

== ENCOUNTER 2017-10-25 20:21 | Emergency (ER) | END 2017-10-26 00:38 | disposition left against medical advice (07) ==

== ENCOUNTER 2017-10-26 07:34 | Emergency (ER) | END 2017-10-26 11:36 | disposition home or self-care (01) ==

== ENCOUNTER 2018-03-09 15:05 | Emergency (ER) | END 2018-03-09 22:10 | disposition home or self-care (01) ==